=== PATIENT | female | born 1975 | race Native Hawaiian/Other Pacific Islander ===

== ENCOUNTER 2017-10-26 23:10 | Emergency (ER) | payer SELFPAY ==
[~2017-10-26] VITALS: Ht 152.4 cm; Wt 49.9 kg
--- NOTE | 2017-10-26 23:20 | NUR ---
BB FAMILY MEMBER FROM HOME WITH C/O HEAD INJURY AND HEADACHE. PT STATES SHE "WAS OUTSIDE TALKING ON THE PHONE, CAME BACK WITH LT TEMPORAL HEAD BLEED". PT ADMITS TO DRINKING PRIOR TO AMNESIC TRAUMA. AAOX4. UNABLE TO RECAL MECHANISM OF INJURY. RESP EVEN AND UNLABORED. NO S/S OF ACUTE DISTRESS NOTED. FAMILY MEMBER BEDSIDE WITH PT. AWAITING EVAL.
--- NOTE | 2017-10-26 23:24 | NUR ---
BEDSIDE FOR EVAL
[2017-10-26] MEDS ORDERED: TDAP [DIPH/PERTUSSIS/TET] 0.5 ML VIAL IM ONE ×2 (23:30→23:46)
--- NOTE | 2017-10-26 23:40 | NUR ---
CHIROPRACTIC PHYSICIAN HONG FOR BLOOD DRAW
[2017-10-26] MEDS ORDERED: LIDOCAINE /MPF 1% VIAL 5 ML VIAL ONE (23:44)
[2017-10-26] MEDS ORDERED: ACETAMINOPHEN 325 MG TABLET ONE (23:46)
--- NOTE | 2017-10-26 23:58 | NUR ---
WAREHOUSE SHIFT SUPERVISOR DEGRASSE BEDSIDE FOR WOUND CARE AND NAKITA. [address]
[2017-10-27] MEDS ORDERED: ACETAMINOPHEN 325 MG TABLET PO ONE
[2017-10-27 00:03] LABS: HEMATOCRIT 41 % (33-45); HEMOGLOBIN 13.2 g/dL (11.5-14.8); MEAN CORPUSCULAR HEMOGLOBIN 23 PG (26.0-33.0); MEAN CORPUSCULAR HGB CONC 32 g/dl (31.0-36.0); MEAN CORPUSCULAR VOLUME 72 fL (82-100); PLATELET COUNT (AUTO) 258 /CMM (150-450); RDW COEFFICIENT OF VARIATION 16.6 (11.5-15.0); RED BLOOD CELL COUNT(AUTO) 5.73 MIL/uL (4.0-5.2); WHITE BLOOD COUNT (AUTO) 9.3 K/uL (4.3-11.0)
--- NOTE | 2017-10-27 00:04 | NUR ---
EMT BEDSIDE FOR ACCUCHECK
--- NOTE | 2017-10-27 00:08 | NUR ---
PT TO CT
[2017-10-27 00:17] LABS: CALCIUM, SERUM 8.7 mg/dL (8.5-10.1); CREATININE 0.8 mg/dL (0.6-1.3); POTASSIUM 3.6 mmol/L (3.5-5.1)
[2017-10-27 00:19] LABS: INR 0.9 (0.87-1.13)
--- NOTE | 2017-10-27 00:22 | NUR ---
PT BACK FROM CT
[2017-10-27 00:41] LABS: EOSINOPHILS % (MANUAL) 4 % (0-4); LYMPHOCYTES % (MANUAL) 35 % (16-48); MONOCYTES % (MANUAL) 1 % (0-11.0); NEUTROPHILS % (MANUAL) 60 (42-76)
--- NOTE | 2017-10-27 03:33 | NUR ---
Patient discharged to home in stable condition WITH FAMILY FRIEND.. Written and verbal after care instructions given. Patient verbalizes understanding of instruction.IV removed. Catheter intact and site benign. Pressure and 4x4 applied to site. No bleeding noted.
[2017-10-27 03:35] VITALS: BP 121/76
== END 2017-10-27 03:37 | disposition home or self-care (01) ==
LOC: ER 23:12
DX: S01.01XA Laceration without foreign body of scalp, initial encounter (principal); F10.129 Alcohol abuse with intoxication, unspecified; X58.XXXA Exposure to other specified factors, initial encounter; Y93.89 Activity, other specified; Y92.89 Other specified places as the place of occurrence of the external cause; Y99.8 Other external cause status
CPT/HCPCS: 12001; 36415; 70450; 72125; 80048; 82962; 84703; 85025; 85730; 90471; 90715; 93005; 99285; A4606; A6403; G0480; J3490; L0172; Z7610